=== PATIENT | female | born 1970 | race Caucasian/White ===

== ENCOUNTER → 2016-08-02 | Outpatient (CLI) | payer OTHER ==
[~2016-08-02] MED LIST: NORCO 325 MG-51 TAB PO
== END ==
LOC: COL.LAB 12:00
DX: Z53.9 Procedure and treatment not carried out, unspecified reason (principal)

== ENCOUNTER → 2016-09-24 | Outpatient (REF) ==
[2016-09-24 13:46] LABS: THYROID STIMULATING HORMONE 1.05 uIU/mL (0.465-4.680)
[2016-09-24 14:13] LABS: THYROXINE (T4)-TOTAL 7.7 ug/dL (5.5-11.0)
== END ==
LOC: ZLAB.WCH 12:58
PROVIDERS: Nurse Practitioner Family
DX: Z01.89 Encounter for other specified special examinations (principal)

== ENCOUNTER 2016-10-19 11:26 | Emergency (ER) | payer OTHER ==
[~2016-10-19] VITALS: Ht 167.6 cm; Wt 68.2 kg
[2016-10-19 11:27] VITALS: BP 138/71; PULSE 59; TEMP 98.4
[2016-10-19] MEDS ORDERED: NORCO 325 MG-51 TAB PO (12:55)
== END 2016-10-19 13:20 | disposition home or self-care (01) ==
LOC: COL.ER 11:26
DX: S13.9XXA Sprain of joints and ligaments of unspecified parts of neck, initial encounter (principal); S20.212A Contusion of left front wall of thorax, initial encounter; Z90.710 Acquired absence of both cervix and uterus; Z98.890 Other specified postprocedural states; V49.40XA Driver injured in collision with unspecified motor vehicles in traffic accident, initial encounter